=== PATIENT | male | born 1975 | race Caucasian/White ===

== ENCOUNTER 2022-03-24 19:02 | Emergency (ER) | payer MEDICARE, MEDICAID ==
[2022-03-24 19:28] VITALS: BP 119/98
--- NOTE | 2022-03-24 19:29 | ED Upper Extremity ---
General Chief Complaint: Laceration Stated Complaint: RIGHT HAND LACERATION Nursing Triage Note: Pt presents with a right index finger laceration. Pt states he cut his finger on wire that is on his hen house Source: patient Exam Limitations: no limitations History of Present Illness Date Seen by Provider: Mar 24, 2022 Time Seen by Provider: 19:15 Initial Comments Patient with 2 cm full-thickness linear laceration over the extensor surface of proximal phalanx of right middle finger. No tendon involvement. Tetanus is up-to-date. Injury occurred just prior to to arrival Onset: just prior to arrival Severity: mild Pain/Injury Location: right 2nd finger Method of Injury: incised Modifying Factors: Improves With Other Allergies and Home Medications Allergies Coded Allergies: No Known Drug Allergies (Unverified , 03/24/22) Patient Home Medication List Home Medication List Reviewed: No Review of Systems Constitutional: see HPI Skin: see HPI Past [id number] Hx Patient Social History Tobacco Use?: No Use of E-Cig and/or Vaping dev: No Substance use?: No Pt feels they are or have been: No Physical Exam Vital Signs Vital Signs - First Documented 03/24/22 19:10 Temp 36.7 Pulse 95 Resp 18 B/P (MAP) 119/98 (105) Pulse Ox 97 O2 Delivery Room Air Capillary Refill : Less Than 3 Seconds Height, Weight, BMI Height: '" Weight: lbs. oz. kg; BMI Method: General Appearance: WD/WN, no apparent distress Hand: Right (2 cm linear laceration over extensor surface of proximal phalanx of right second finger. Wound is clean, no foreign is present. There is no tendon involvement.) Progress/Results/Core Measures Results/Orders Vital Signs/I&O 03/24/22 19:10 Temp 36.7 Pulse 95 Resp 18 B/P (MAP) 119/98 (105) Pulse Ox 97 O2 Delivery Room Air Blood Pressure Mean: 105 Departure Communication (Admissions) Wound repair procedure note Right index wound cleansed, inspected and closed with wound adhesive. First dose of antibiotics given. Typical wound care instructions provided. Recommendations are watchful waiting, supportive care and PCP follow-up as needed. Return precautions reviewed. Impression Primary Impression: Laceration of right index finger Disposition: HOME, SELF-CARE Condition: Stable Departure-Patient Inst. Decision time for Depature: 19:28 Referrals: NO,LOCAL PHYSICIAN (PCP/Family) Primary Care Physician Patient Instructions: Laceration Repair With Glue ED Add. Discharge Instructions: Please keep wound clean covered and dry. Fill antibiotics and take as directed. Return to the ED if signs of infection. All discharge instructions reviewed with patient and/or family. Voiced understanding. Scripts Amoxicillin/Potassium Clav (Augmentin Xr 1,000-62.5 Tab) 1,000 Mg-62.5 Mg Tab.er.12h 1 EACH PO BID, #10 TAB Prov: FLORINDA ROJO DO 03/24/22 FLORINDA ROJO DO Mar 24, 2022 19:29
[2022-03-24] MEDS ORDERED: AMOX-356 PO (19:30)
[2022-03-25] MEDS ORDERED: AUGMENTIN 875 MG TAB (AMOXICILLIN/CLAVULANATE) PO SCH (08:00)
== END 2022-03-24 19:31 | disposition home or self-care (01) ==
LOC: ER FS 19:07
DX: S61.210A Laceration without foreign body of right index finger without damage to nail, initial encounter (principal); Z28.310 Unvaccinated for COVID-19; W26.8XXA Contact with other sharp object(s), not elsewhere classified, initial encounter; Y92.72 Chicken coop as the place of occurrence of the external cause